=== PATIENT | female | born 1960 | race Caucasian/White ===

== ENCOUNTER 2017-10-13 15:54 | Emergency (ER) | payer OTHER ==
[~2017-10-13] VITALS: Ht 156.2 cm; Wt 54.9 kg
--- OUTSIDE RECORDS SUMMARY | 2017-10-13 16:02 | XMS REPORT ---
Author Ely Wakefield Organization [facility] Address [address] [place], [place] [id number] Care Team Providers Care Head And Neck Surgeon Name Role Phone Ely Braun PCP Unavailable Allergies and Adverse Reactions Name Reaction Notes SULFA (SULFONAMIDES) "diarrhea" Plan of Treatment Planned Activity Comments Planned Date Planned Time Plan/Goal DXA BONE DENSITY AXIAL 05/14/2016 12:00 AM Medications Active Name Start Date Estimated Completion Date SIG Comments naproxen 500 mg oral tablet 05/10/2016 Take one tab 1-2 times a day Zoloft 50 mg oral tablet 05/10/2016 11/06/2016 take 1 tablet (50 mg) by oral route once daily for 30 days Name Start Date Expiration Date SIG Comments Zithromax Z-Carlos 250 mg oral tablet 01/06/2016 01/11/2016 Take 2 tablets the first day (500 mg) followed by 1 tablet (250 mg) days 2-5. for 5 days Discontinued Name Start Date Discontinued Date SIG Comments amoxicillin 500 mg oral capsule 11/11/2015 01/06/2016 Take one capsule three times a day for 7 days Sudafed 12 Hour 120 mg oral tablet extended release 11/11/2015 01/06/2016 take 1 tablet (120 mg) by oral route every 12 hours codeine-guaifenesin 10-100 mg/5 mL oral liquid 01/06/2016 05/10/2016 take 10 milliliters by oral route every 4 hours as needed Problem List Description Status Onset Chronic back pain greater than 3 months duration Active Varicose veins of both lower extremities Active Vital Signs Date Time BP-Sys(mm[Hg] BP-Kassie(mm[Hg]) HR(bpm) RR(rpm) Temp WT HT HC BMI BSA BMI Percentile O2 Sat(%) 05/10/2016 4:28:00 PM 126 mmHg 72 mmHg 73 bpm 18 rpm 98.3 F 122 lbs 62 in 22.31 kg/m2 1.56 m2 99 % 01/06/2016 2:36:00 PM 128 mmHg 72 mmHg 91 bpm 20 rpm 99.2 F 123 lbs 97 % 11/11/2015 3:49:00 PM 118 mmHg 64 mmHg 66 bpm 16 rpm 98.9 F 123 lbs 62 in 22.50 kg/m2 1.56 m2 98 % Social History Name Description Comments Alcohol Current some day wine 4x qweek Tobacco Former smoker quit 1992, 16 pack years History of Procedures Date Ordered Description Order Status 01/06/2016 2:49 PM STREP A ASSAY W/OPTIC Reviewed Results Summary Data and Description Results 01/06/2016 2:49 PM STREPTOCOCCUS, GROUP A CULTURE Negative History Of Immunizations Not available. History of Past Illness Name Date of Onset Comments Varicose veins of both lower extremities Chronic back pain greater than 3 months duration Memory difficulty OME (otitis media with effusion) Nov 11 2015 3:53PM Cough Jan 06 2016 2:39PM Upper Respiratory Infections Jan 06 2016 2:39PM Screening for osteoporosis May 10 2016 4:29PM Height loss May 10 2016 4:29PM Chronic back pain May 10 2016 4:29PM Screening for breast cancer May 10 2016 4:29PM Payers Insurance Name Company Name Plan Name Plan Number Policy Number Policy Group Number Start Date ProviDrs Care ProviDrs Care [id number] Saturday, 2013 History of Encounters Visit Date Visit Type Provider 05/10/2016 Office visit Ely Braun APRN 01/06/2016 Office visit Ely Braun APRN 11/11/2015 Office visit Ely Braun APRN
--- OUTSIDE RECORDS SUMMARY | 2017-10-13 16:02 | XMS REPORT ---
Author Author Sydni Ferreira [facility] Address [address] [place], [place] [id number] Care Team Providers Care Fws Faculty Assistant Name Role Phone Sydni Ferreira PCP Unavailable Allergies and Adverse Reactions Name Reaction Notes SULFA (SULFONAMIDES) "diarrhea" Plan of Treatment Planned Activity Comments Planned Date Planned Time Plan/Goal DEXA 05/14/2016 12:00 AM Medications Active Name Start Date Estimated Completion Date SIG Comments naproxen 500 mg oral tablet 06/24/2017 TAKE ONE TABLET BY MOUTH ONE TO TWO TIMES DAILY. Zoloft 50 mg oral tablet 07/30/2017 take 1 tablet (50 mg) by oral route once daily for 90 days Name Start Date Expiration Date SIG Comments Zithromax Z-Carlos 250 mg oral tablet 01/06/2016 01/11/2016 Take 2 tablets the first day (500 mg) followed by 1 tablet (250 mg) days 2-5. for 5 days naproxen 500 mg oral tablet 11/17/2016 05/16/2017 Take one tab 1-2 times a day Discontinued Name Start Date Discontinued Date SIG [...] oral route every 4 hours as needed mupirocin 2 % topical ointment 07/05/2016 06/20/2017 apply a small amount to the affected area by topical route 3 times per day Macrobid 100 mg oral capsule 08/25/2017 09/14/2017 take 1 capsule (100 mg) by oral route every 12 hours with food for 7 days Problem List Description Status Onset Chronic back pain greater than 3 months duration Active Varicose veins of both lower extremities Active Depression Active 12/06/2016 Vital Signs Date Time BP-Sys(mm[Hg] BP-Kassie(mm[Hg]) HR(bpm) RR(rpm) Temp WT HT HC BMI BSA BMI Percentile O2 Sat(%) 09/14/2017 9:51:00 AM 140 mmHg 96 mmHg 67 bpm 20 rpm 97.9 F 120.25 lbs 62 in 21.99 kg/m2 1.54 m2 99 % 08/25/2017 10:15:00 AM 138 mmHg 80 mmHg 69 bpm 18 rpm 97.8 F 119.5 lbs 62 in 21.8566 kg/m 1.5399 m 97 % 06/20/2017 4:17:00 PM 118 mmHg 80 mmHg 70 bpm 20 rpm 98 F 117.125 lbs 62 in 21.42 kg/m2 1.52 m2 99 % 11/17/2016 11:22:00 AM 118 mmHg 80 mmHg 66 bpm 18 rpm 98.2 F 119 lbs 100 % 07/05/2016 4:38:00 PM 118 mmHg 74 mmHg 66 bpm 18 rpm 96.7 F 122 lbs 62 in 22.31 kg/m2 1.56 m2 99 % 05/10/2016 4:28:00 PM 126 mmHg 72 mmHg 73 bpm 18 rpm 98.3 F 122 lbs 62 in 22.3139 kg/m 1.5559 m 99 % 01/06/2016 2:36:00 PM 128 mmHg 72 mmHg 91 bpm 20 rpm 99.2 F 123 lbs 97 % 11/11/2015 3:49:00 PM 118 mmHg 64 mmHg 66 bpm 16 rpm 98.9 F 123 lbs 62 in 22.4968 kg/m 1.5622 m 98 % Social History Name Description Comments Alcohol Current some day wine 4x qweek Tobacco Former smoker quit 1992, 16 pack years History of Procedures Date Ordered Description Order Status 01/06/2016 2:49 PM STREP A ASSAY W/OPTIC Reviewed 05/14/2016 12:00 AM MAMMOGRAPHY SCREENING, DIGITAL Reviewed 11/17/2016 12:00 AM X-RAY EXAM OF FINGER(S) Returned 06/20/2017 12:00 AM MAMMOGRAPHY SCREENING, DIGITAL Returned 08/25/2017 11:23 AM URINALYSIS AUTO W/O SCOPE Reviewed 08/25/2017 12:00 AM URINE BACTERIA CULTURE Reviewed Results Summary Date and Description Results 01/06/2016 2:49 PM STREPTOCOCCUS, GROUP A CULTURE Negative 08/25/2017 11:23 AM Clarity Ur cloudy Urine-Color light yellow Glucose Ur- sCnc negative Bilirub Ur Ql negative Ketones Ur Ql Strip negative Sp Gr Ur Qn 1.015 Hgb Ur Ql Strip moderate pH Ur-LsCnc 7.0 Prot Ur Ql Strip negative Urobilinogen Ur-mCnc 0.2 Nitrite Ur Ql Strip negative WBC # Ur small History Of Immunizations Not available. History of Past Illness Name Date of Onset Comments Varicose veins of both lower extremities Chronic back pain greater than 3 months duration Memory difficulty Depression 12/06/2016 OME (otitis media with effusion) Nov 11 2015 3:53PM Cough Jan 06 2016 2:39PM Upper Respiratory Infections Jan 06 2016 2:39PM Screening for osteoporosis May 10 2016 4:29PM Height loss May 10 2016 4:29PM Chronic back pain May 10 2016 4:29PM Screening for breast cancer May 10 2016 4:29PM Screening for osteoporosis Jul 05 2016 4:41PM Height loss Jul 05 2016 4:41PM Chronic back pain Jul 05 2016 4:41PM Screening for breast cancer Jul 05 2016 4:41PM Skin complaints Jul 05 2016 4:41PM Finger pain, left Nov 17 2016 11:25AM Dorsalgia, unspecified Nov 17 2016 11:25AM Other chronic pain Nov 17 2016 11:25AM Depression Nov 17 2016 11:25AM Screening for breast cancer Jun 20 2017 4:19PM Routine gynecological examination Jun 20 2017 4:19PM Infective urethritis Aug 25 2017 10:20AM Jaw swelling Sep 14 2017 9:52AM Payers Insurance Name Company Name Plan Name Plan Number Policy Number Policy Group Number Start Date Employee Benefit Management Employee Benefit Management [id number] N /A ProviDrs Care ProviD[employer] Care [id number] Saturday, 2013 History of Encounters Visit Date Visit Type Provider 09/14/2017 Office visit Sydni Ferreira MD 08/25/2017 Office visit Joy Marie PONY RIDE ATTENDANT 06/20/2017 Office visit Ely Braun PONY RIDE ATTENDANT 11/17/2016 Office visit Ely Braun PONY RIDE ATTENDANT 07/05/2016 Office visit Ely Braun PONY RIDE ATTENDANT 05/10/2016 Office visit Ely Braun PONY RIDE ATTENDANT 01/06/2016 Office visit Ely Braun PONY RIDE ATTENDANT 11/11/2015 Office visit Ely Braun PONY RIDE ATTENDANT
--- OUTSIDE RECORDS SUMMARY | 2017-10-13 16:02 | XMS REPORT ---
Author Author Joy Marie Organization [facility] Address [address] [place], [place] [address] Care Team Providers Care Blender Conveyor Operator Name Role Phone Joy Marie PCP Unavailable Allergies and Adverse Reactions Name Reaction Notes SULFA (SULFONAMIDES) "diarrhea" Plan of Treatment Planned Activity Comments Planned Date Planned Time Plan/Goal DEXA 05/14/2016 12:00 AM Urine culture and sensitivity 08/25/2017 12:00 AM Medications Active Name Start Date Estimated Completion Date SIG Comments naproxen 500 mg oral tablet 06/24/2017 TAKE ONE TABLET BY MOUTH ONE TO TWO TIMES DAILY. Zoloft 50 mg oral tablet 07/30/2017 take 1 tablet (50 mg) by oral route once daily for 90 days Macrobid 100 mg oral capsule 08/25/2017 take 1 capsule (100 mg) by oral route every 12 hours with food for 7 days Name Start Date Expiration Date SIG [...] by topical route 3 times per day Problem List Description Status Onset Chronic back pain greater than 3 months duration Active Varicose veins of both lower extremities Active Depression Active 12/06/2016 Vital Signs Date Time BP-Sys(mm[Hg] BP-Kassie(mm[Hg]) HR(bpm) RR(rpm) Temp WT HT HC BMI BSA BMI Percentile O2 Sat(%) 08/25/2017 10:15:00 AM 138 mmHg 80 mmHg 69 bpm 18 rpm 97.8 F 119.5 lbs 62 in 21.86 kg/m2 1.54 m2 97 % 06/20/2017 4:17:00 PM 118 mmHg 80 mmHg 70 bpm 20 rpm 98 F 117.125 lbs 62 in 21.4222 kg/m 1.5245 m 99 % 11/17/2016 11:22:00 AM 118 mmHg 80 mmHg 66 bpm 18 rpm 98.2 F 119 lbs 100 % 07/05/2016 4:38:00 PM 118 mmHg 74 mmHg 66 bpm 18 rpm 96.7 F 122 lbs 62 in 22.3139 kg/m 1.5559 m 99 % 05/10/2016 4:28:00 PM 126 mmHg [...] 11:23 AM URINALYSIS AUTO W/O SCOPE Reviewed Results Summary Date and Description Results [...] 4:19PM Infective urethritis Aug 25 2017 10:20AM Payers Insurance Name Company Name Plan Name Plan Number Policy Number Policy Group Number Start Date Employee Benefit Management Employee Benefit Management [id number] N /A ProviDrs Care Provi[employer] Care [id number] Saturday, 2013 History of Encounters Visit Date Visit Type Provider 08/25/2017 Office visit Joy Marie APRN 06/20/2017 Office visit Ely Braun MAIL SORTING SUPERVISOR 11/17/2016 Office visit Ely Braun APRN 07/05/2016 Office visit Ely Braun APRN 05/10/2016 Office visit Ely Braun APRN 01/06/2016 Office visit Ely Braun APRN 11/11/2015 Office visit Ely Braun APRN
--- OUTSIDE RECORDS SUMMARY | 2017-10-13 16:02 | XMS REPORT ---
Author Author Ely Braun [facility] Address [address] [place], [place] [id number] Care Team Providers Care Survey Worker Name Role Phone Ely Braun PCP Unavailable Allergies and Adverse Reactions Name Reaction Notes SULFA (SULFONAMIDES) "diarrhea" Plan of Treatment Not available. Medications Active Name Start Date Estimated Completion Date SIG Comments Zoloft 50 mg oral tablet take 1 tablet (50 mg) by oral route once daily naproxen 500 mg oral tablet 1 tab QD amoxicillin 500 mg oral capsule 11/11/2015 Take one capsule three times a day for 7 days Sudafed 12 Hour 120 mg oral tablet extended release 11/11/2015 take 1 tablet (120 mg) by oral route every 12 hours Problem List Description Status Onset Chronic back pain greater than 3 months duration Active Varicose veins of both lower extremities Active Vital Signs Date Time BP-Sys(mm[Hg] BP-Kassie(mm[Hg]) HR(bpm) RR(rpm) Temp WT HT HC BMI BSA BMI Percentile O2 Sat(%) 11/11/2015 3:49:00 PM 118 mmHg 64 mmHg 66 bpm 16 rpm 98.9 F 123 lbs 62 in 22.50 kg/m2 1.56 m2 98 % Social History Name Description Comments Alcohol Current some day wine 4x qweek Tobacco Former smoker quit 1991, 16 pack years History of Procedures Not available. Results Summary Not available. History Of Immunizations Not available. History of Past Illness Name Date of Onset Comments Varicose veins of both lower extremities Chronic back pain greater than 3 months duration Memory difficulty OME (otitis media with effusion) Nov 11 2015 3:53PM Payers Insurance Name Company Name Plan Name Plan Number Policy Number Policy Group Number Start Date ProviDrs Care ProviDrs Care [id number] Saturday, 2013 History of Encounters Visit Date Visit Type Provider 11/11/2015 Office visit Ely Braun ASSISTANT WOMENS VOLLEYBALL COACH
--- OUTSIDE RECORDS SUMMARY | 2017-10-13 16:02 | XMS REPORT | CCD ---
Author Author MAGY DORSEY Unknown Address [address] [place], [place] [address] Care Team Providers Care Custom Miller Name Role Phone SHADY RAMIRES, CELSO Wynne Attphys Vital Signs Vital Sign Value Unit Date/Time Recent/Initial? Weight Measured 120 lbs 06/02/2015 09:25 Initial VS Height 63 in 06/02/2015 09:25 Initial VS BMI (Body Mass Index) 21.26 kg/m^2 06/02/2015 09:25 Initial VS BSA (Body Surface Area) 1.56 m^2 06/02/2015 09:25 Initial VS Allergies Allergy Code Allergy Type Reaction Status SULFA (sulfonamide) 0 Drug allergy Active Procedures Procedure Code Procedure Type Date CARPAL TUNNEL RELEASE 0443 ICD-9 CM, Volume 3 06/03/2015 History of Immunizations Immunization Code Date Influenza, seasonal, injectable 141 08/12/2013 influenza, injectable, quadrivalent 158 09/01/2014 Problems Unknown or Not Available. Results Unknown or Not Available. Active Medications No Active Medications Medications Administered During Visit Unknown or Not Available. Encounters Encounter Diagnosis Diagnosis Code Start Date CARPAL TUNNEL SYNDROME 3540 06/03/2015 Social History Smoking Status Code Start Date End Date Never smoker [id number] Patient Decision Aids Patient Decision Aid HAND SURGERY; AFTER THE PROCEDURE Discharge Instructions You were admitted to [facility] on 06/03/2015 with a principal diagnosis of CARPAL TUNNEL SYNDROME. You had the following procedures done: CARPAL TUNNEL SURGERY You were discharged from [facility] on 06/03/2015. Should you have any questions prior to discharge, please contact a member of your healthcare team. If you have left the hospital and have any questions, please contact your primary care physician. Chief Complaint and Reason For Visit Chief Complaint Date of Onset CARPAL TUNNEL Function Status Unknown or Not Available. Plan of Care Unknown or Not Available. Referral/Transition of Care Unknown or Not Available.
--- OUTSIDE RECORDS SUMMARY | 2017-10-13 16:02 | XMS REPORT ---
Author Ely Wakefield Organization [facility] Address [address] [place], [place] [id number] Care Team Providers Care Under Trimmer Name Role Phone Ely Braun PCP Unavailable [...] Date Employee Benefit Management Employee Benefit Management [id number] N /A ProviDrs Care ProviDrs Care [id number] Saturday, 2013 History of Encounters Visit Date Visit Type Provider 05/10/2016 Office visit Ely Braun APRN 01/06/2016 Office visit Ely Braun APRN 11/11/2015 Office visit Ely Braun APRN
--- OUTSIDE RECORDS SUMMARY | 2017-10-13 16:03 | XMS REPORT ---
Author Ely Wakefield Organization [facility] Address [address] [place], [place] [address] Care Team Providers Care Felling Bucking Supervisor Name Role Phone Ely Braun PCP Unavailable Allergies and Adverse Reactions Name Reaction Notes SULFA (SULFONAMIDES) "diarrhea" Plan of Treatment Planned Activity Comments Planned Date Planned Time Plan/Goal DEXA 05/14/2016 12:00 AM Medications Active Name Start Date Estimated Completion Date SIG Comments mupirocin 2 % topical ointment 07/05/2016 apply a small amount to the affected area by topical route 3 times per day naproxen 500 mg oral tablet 11/17/2016 05/16/2017 Take one tab 1-2 times a day Zoloft 50 mg oral tablet 11/17/2016 08/14/2017 take 1 tablet (50 mg) by oral [...] HC BMI BSA BMI Percentile O2 Sat(%) 11/17/2016 11:22:00 AM 118 mmHg 80 mmHg [...] 1991, 16 pack years History of Procedures Date Ordered Description Order Status 01/06/2016 2:49 PM STREP A ASSAY W/OPTIC Reviewed 05/14/2016 12:00 AM MAMMOGRAPHY SCREENING, DIGITAL Reviewed 11/17/2016 12:00 AM X-RAY EXAM OF FINGER(S) Returned Results Summary Data and Description Results 01/06/2016 [...] 2016 11:25AM Depression Nov 17 2016 11:25AM Payers Insurance Name Company Name Plan Name Plan Number Policy Number Policy Group Number Start Date Employee Benefit Management Employee Benefit Management [id number] N /A ProviDrs Care ProviDrs Care [id number] Saturday, 2013 History of Encounters Visit Date Visit Type Provider 11/17/2016 Office visit Ely Braun MORTAR MAKER 07/05/2016 Office visit Ely Braun MORTAR MAKER 05/10/2016 Office visit Ely Braun APRN 01/06/2016 Office visit Ely Braun MORTAR MAKER 11/11/2015 Office visit Ely Braun MORTAR MAKER
--- OUTSIDE RECORDS SUMMARY | 2017-10-13 16:03 | XMS REPORT ---
Author Ely Wakefield Organization [facility] Address [address] [place], [place] [address] Care Team Providers Care Twister Tender Paper Name Role Phone Ely Braun PCP Unavailable Allergies and Adverse Reactions Name Reaction Notes SULFA (SULFONAMIDES) "diarrhea" Plan of Treatment Not available. Medications Active Name Start Date Estimated Completion Date SIG Comments Zoloft 50 mg oral tablet take 1 tablet (50 mg) by oral route once daily naproxen 500 mg oral tablet 1 tab QD codeine-guaifenesin 10-100 mg/5 mL oral liquid 01/06/2016 take 10 milliliters by oral route every 4 hours as needed Name Start Date Expiration Date SIG Comments [...] HC BMI BSA BMI Percentile O2 Sat(%) 01/06/2016 2:36:00 PM 128 mmHg 72 mmHg [...] Upper Respiratory Infections Jan 06 2016 2:39PM Payers Insurance Name Company Name Plan Name Plan Number Policy Number Policy Group Number Start Date ProviDrs Care ProviDrs Care [id number] Saturday, 2013 History of Encounters Visit Date Visit Type Provider 01/06/2016 Office visit Ely Braun APRN 11/11/2015 Office visit Ely Braun CORPORATE TRAVEL COORDINATOR
--- OUTSIDE RECORDS SUMMARY | 2017-10-13 16:03 | XMS REPORT ---
Author Author Flo Bansal Organization [employer] Address Unknown Phone Unavailable Care Team Providers Care Dumper Mold Cleaner Name Role Phone Flo Bansal CP Unavailable Allergies, Adverse Reactions, Alerts Substance Reaction Event Type N.K.D.A. Info Not Available Non Drug Allergy Problems Problem Type Condition Code Onset Dates Condition Status Problem Carpal tunnel syndrome 354.0 Active Assessment Carpal tunnel syndrome 354.0 Active Problem Attention or concentration deficit 799.51 Active Medications Medication Code System Code Instructions Start Date End Date Status Dosage Naproxen [facility] [address]-32 500 MG Orally every 12 hrs 1 tablet as needed Zoloft [facility] [address]-60 50 MG Orally Once a day 1 tablet Gabapentin [facility] [address]-13 300 MG Orally Three times a day 1 capsule [place] [facility] [address]-75 5-325 MG Orally As needed 1 tablet every 4 hours or at bedtime Procedures Procedure Coding System Code Date SOME PRESCRIB HANDWRITTEN OR CPT-4 G8446 February 03, 2015 PRESCRIPTION BY E-PRESCRIB S CPT-4 G8443 February 03, 2015 TOBACCO NON-USER CPT-4 G8457 February 03, 2015 CLIN DEPRESSION SCREEN DOC CPT-4 G8431 February 03, 2015 DOC MEDS VERIFIED W/PT OR RE CPT-4 G8427 February 03, 2015 PAIN ASSESSMENT DOCUMENT CPT-4 G8440 February 03, 2015 TX PLAN DEVELOP & DOCUMENT CPT-4 G8437 February 03, 2015 BP SYS <130 AND PEREZ <80 CPT-4 G8476 February 03, 2015 PAIN SEV QUANTIFIED PAIN PRES CPT-4 G8512 February 03, 2015 BMI>=30OR<22 JINA NO FOLLOWUP CPT-4 G8419 February 03, 2015 AT LEAST 1 RX TRANSMIT ERX SYS CPT-4 G8553 February 03, 2015 MOST RECENT SYSTOLIC BP <140 MM HG CPT-4 G8588 February 03, 2015 FLU VACCINE NOT SCREEN CPT-4 G8424 February 03, 2015 MOST RECENT DIASTOLIC BP <90 MM HG CPT-4 G8590 February 03, 2015 Office Visit, New Pt., Level 2 CPT-4 08753 February 03, 2015 Vital Signs Date/Time: February 03, 2015 BMI 21.43 Index Pain Scale 5/10 1-10 Weight 121.0 lbs Height 63 in Respiratory Rate 24 /min Temperature 97.7 F Cardiac Monitoring Heart Rate 80 /min Oximetry 98 % Blood Pressure Diastolic 74 mm Hg Blood Pressure Systolic 118 mm Hg Results No Known Results Summary Purpose [employer] Submission
--- OUTSIDE RECORDS SUMMARY | 2017-10-13 16:03 | XMS REPORT | Continuity of Care Document ---
Author Author [facility] Organization [facility] Address Unknown Phone Unavailable Allergies Medications Problems Procedures Results Encounters ACCT No. Visit Date/Time Discharge Status Pt. Type Provider Facility Loc./Unit Complaint [id number] 09/14/2017 10:43:29 09/14/2017 23: 59:59 [facility] Outpatient Sydni Ferreira [id number] 08/25/2017 11:06:55 08/25/2017 23: 59:59 [facility] Outpatient Joy Marie [id number] 06/20/2017 17:12:47 06/20/2017 23: 59:59 [facility] Outpatient Ely Braun [id number] 11/17/2016 12:12:33 11/17/2016 23: 59:59 [facility] Outpatient Ely Braun [id number] 07/05/2016 17:34:52 07/05/2016 23: 59:59 [facility] Outpatient Ely Braun [id number] 05/10/2016 17:21:46 05/10/2016 23: 59:59 [facility] Outpatient Ely Braun [id number] 01/06/2016 15:27:17 01/06/2016 23: 59:59 [facility] Outpatient Ely Braun [id number] 11/11/2015 16:36:53 11/11/2015 23: 59:59 [facility] Outpatient Ely Braun
--- OUTSIDE RECORDS SUMMARY | 2017-10-13 16:03 | XMS REPORT ---
Author Ely Wakefield Organization [facility] Address [address] [place], [place] [address] Care Team Providers Care Lead Database Administrator Name Role Phone Ely Braun PCP Unavailable Allergies and Adverse Reactions Name Reaction Notes SULFA (SULFONAMIDES) "diarrhea" Plan of Treatment Planned Activity Comments Planned Date Planned Time Plan/Goal DEXA 05/14/2016 12:00 AM Medications Active Name Start Date Estimated Completion Date SIG Comments Zoloft 50 mg oral tablet 11/17/2016 08/14/2017 [...] HC BMI BSA BMI Percentile O2 Sat(%) 06/20/2017 4:17:00 PM 118 mmHg 80 mmHg [...] X-RAY EXAM OF FINGER(S) Returned Results Summary Date and Description Results 01/06/2016 [...] Routine gynecological examination Jun 20 2017 4:19PM Payers Insurance Name Company Name Plan Name Plan Number Policy Number Policy Group Number Start Date Employee Benefit Management Employee Benefit Management [id number] N /A ProviDrs Care ProviDrs Care [id number] Saturday, 2013 History of Encounters Visit Date Visit Type Provider 06/20/2017 Office visit Ely Braun SIGNAL MAINTAINER HELPER 11/17/2016 Office visit Ely Braun SIGNAL MAINTAINER HELPER 07/05/2016 Office visit Ely Braun SIGNAL MAINTAINER HELPER 05/10/2016 Office visit Ely Braun SIGNAL MAINTAINER HELPER 01/06/2016 Office visit Ely Braun SIGNAL MAINTAINER HELPER 11/11/2015 Office visit Ely Braun SIGNAL MAINTAINER HELPER
--- OUTSIDE RECORDS SUMMARY | 2017-10-13 16:03 | XMS REPORT ---
Author Ely Wakefield Organization [facility] Address [address] [place], [place] [address] Care Team Providers Care Frame Opener Name Role Phone Ely Braun PCP Unavailable [...] oral route once daily for 30 days mupirocin 2 % topical ointment 07/05/2016 apply a small amount to the affected area by topical route 3 times per day Name Start Date Expiration Date SIG Comments [...] HC BMI BSA BMI Percentile O2 Sat(%) 07/05/2016 4:38:00 PM 118 mmHg 74 mmHg [...] 4:41PM Skin complaints Jul 05 2016 4:41PM Payers Insurance Name Company Name Plan Name Plan Number Policy Number Policy Group Number Start Date Employee Benefit Management Employee Benefit Management [id number] N /A ProviDrs Care Provi[employer]rs Care [id number] Saturday, 2013 History of Encounters Visit Date Visit Type Provider 07/05/2016 Office visit Ely Braun APRN 05/10/2016 Office visit Ely Braun MARINA DRY DOCK MANAGER 01/06/2016 Office visit Ely Braun MARINA DRY DOCK MANAGER 11/11/2015 Office visit Ely Braun MARINA DRY DOCK MANAGER
[2017-10-13] MEDS ORDERED: SERT50TA2 PO (16:19)
[2017-10-13] MEDS ORDERED: NAPR250T6 PO (16:19)
[2017-10-13] MEDS ORDERED: ASPI-999 PO (16:19)
[2017-10-13 16:31] LABS: BASOPHILS % (AUTO) 0 % (0-10); EOSINOPHILS # (AUTO) 0.1 10^3/uL (0.0-0.3); EOSINOPHILS % (AUTO) 1 % (0-10); LYMPHOCYTES # (AUTO) 1.8 X 10^3 (1.0-4.0); LYMPHOCYTES % (AUTO) 21 % (12-44); MEAN CORPUSCULAR HEMOGLOBIN 32 PG (25-34); MEAN CORPUSCULAR HGB CONC 35 G/DL (32-36); MEAN CORPUSCULAR VOLUME 90 FL (80-99); MEAN PLATELET VOLUME 10.7 FL (7.4-10.4); MONOCYTES # (AUTO) 0.5 X 10^3 (0.0-1.0); MONOCYTES % (AUTO) 6 % (0-12); NEUTROPHILS # (AUTO) 6.2 X 10^3 (1.8-7.8); NEUTROPHILS % (AUTO) 72 % (42-75); PLATELET COUNT 321 10^3/uL (130-400); RED BLOOD COUNT 4.38 10^6/uL (4.35-5.85); RED CELL DISTRIBUTION WIDTH 11.9 % (10.0-14.5); WHITE BLOOD COUNT 8.6 10^3/uL (4.3-11.0)
[2017-10-13 16:31] LABS: BILIRUBIN,URINE NEGATIVE (NEGATIVE); KETONES,URINE NEGATIVE (NEGATIVE); LEUKOCYTE ESTERASE ,URINE NEGATIVE (NEGATIVE); NITRITE,URINE NEGATIVE (NEGATIVE); PH,URINE 6.5 (5-9); PROTEIN,URINE NEGATIVE (NEGATIVE); UROBILINOGEN,URINE NORMAL (NORMAL)
[2017-10-13 16:37] LABS: SQUAMOUS EPITHELIAL CELL,UR 0-2 /HPF
[2017-10-13 16:53] LABS: ALANINE AMINOTRANSFERASE 17 U/L (0-55); ALBUMIN 4.2 GM/DL (3.2-4.5); ALCOHOL < 10 MG/DL (<10); ANION GAP 13 MMOL/L (5-14); ASPARTATE AMINO TRANSFERASE 27 U/L (5-34); BILIRUBIN,TOTAL 0.4 MG/DL (0.1-1.0); BLOOD UREA NITROGEN 14 MG/DL (7-18); BUN/CREATININE RATIO 19; CALCIUM 9.6 MG/DL (8.5-10.1); CARBON DIOXIDE 20 MMOL/L (21-32); CHLORIDE 100 MMOL/L (98-107); CREATININE SERUM 0.73 MG/DL (0.60-1.30); GFR ESTIMATED > 60; GLUCOSE 104 MG/DL (70-105); MAGNESIUM 1.8 MG/DL (1.8-2.4); SODIUM 133 MMOL/L (135-145); TOTAL PROTEIN 7.2 GM/DL (6.4-8.2)
--- NOTE | 2017-10-13 16:53 | Diagnostic Imaging Report ---
PROCEDURE: CT head without contrast. TECHNIQUE: Multiple contiguous axial images were obtained through the brain without the use of intravenous contrast. DATE: 10/13/2017. COMPARISON: None. INDICATION: 57-year-old female, sudden onset memory loss. FINDINGS: The ventricles and cerebral spinal fluid spaces are of normal size and configuration for the patient's age. There is no mass effect or midline shift. There is no acute intracranial hemorrhage. There is no abnormal extra-axial fluid collection. The visualized portions of the paranasal sinuses, mastoid air cells and middle ears are well aerated. IMPRESSION: No identified acute intracranial abnormality. Dictated by: Dictated on workstation # [id number]
--- NOTE | 2017-10-13 17:50 | ED Neurological Problem ---
General Chief Complaint: Altered Mental Status Stated Complaint: ONSENT OF MENTAL CONFUSION IN THE MORNING Nursing Triage Note: AMBULATORY TO ER WITH REPORTS OF SOME CONFUSION AND SPEECH DIFFICULTY SINCE AWAKENING AT 0930 THIS MORNING. PATIENT REPORTS THAT SHE WENT TO A [employer] LAST NIGHT AND HAD A FEW DRINKS. PATIENT REPORTS THAT "I DID NOT GET DRUNK." PATIENT REPORTS THAT SHE HAS HAD PROBLEMS WITH MEMORY BEFORE, BUT THIS IS DIFFERENT. PATIENT HAS VERY DISCONNECTED THOUGHTS. Nursing Sepsis Screen: No Definite Risk Source: patient, family Exam Limitations: no limitations History of Present Illness Time seen by provider: 16:00 Initial Comments This 57-year-old woman presents to the emergency room with complaints of confusion and distracted thinking. She feels like she's having short-term memory problems. Her reports the same. She woke at 09:30 with these symptoms. She was at a [employer] last night where she did consume alcohol. She denies intoxication. She has not had any alcohol today. She also takes Benadryl at night to sleep. She reports sleeping very well last night. She feels tired but otherwise has no physical complaints. She reports drinking 3-4 times per week, usually one glass of wine. She denies any significant health problems but does take Zoloft for anxiety/depression. She is concerned she may have had a "mini stroke". Allergies and Home Medications Allergies Coded Allergies: Sulfa (Sulfonamide Antibiotics) (Verified Allergy, Severe, 10/13/17) Home Medications Aspirin 81 Mg Tab.chew, 81 MG PO DAILY, (Reported) Naproxen 250 Mg Tablet, 250 MG PO HS, (Reported) Sertraline HCl 50 Mg Tablet, 50 MG PO DAILY, (Reported) Constitutional: see HPI Eyes: No Symptoms Reported Ears, Nose, Mouth, Throat: no symptoms reported Respiratory: no symptoms reported Cardiovascular: no symptoms reported Gastrointestinal: no symptoms reported Genitourinary: no symptoms reported : No Musculoskeletal: no symptoms reported Skin: no symptoms reported Psychiatric/Neurological: See HPI Endocrine: No Symptoms Reported Past Gxqinhu-Ttgfwo-Pbseno Hx Patient Social History Alcohol Use: Regular Use Alcohol Beverage of Choice: Wine Recreational Drug Use: No Smoking Status: Former Smoker Type Used: Cigarettes 2nd Hand Smoke Exposure: No Recent Foreign Travel: No Contact w/Someone Who Travel: No Recent Infectious Disease Expo: No Recent Hopitalizations: No Physical Abuse: No Sexual Abuse: No Mistreated: No Fear: No Seasonal Allergies Seasonal Allergies: Yes Surgeries History of Surgeries: Yes (CERVICAL SURGERY, cone procedure for dysplasia) Respiratory History of Respiratory Disorde: No Cardiovascular History of Cardiac Disorders: No Neurological History of Neurological Disord: No Reproductive System : No [employer] History: Menopausal Genitourinary History of Genitourinary Disor: No Gastrointestinal History of Gastrointestinal Di: No Musculoskeletal History of Musculoskeletal Dis: No Endocrine History of Endocrine Disorders: No HEENT History of HEENT Disorders: No Cancer History of Cancer: Yes Cancer: Cervical Did You Recieve Any Treatments: Yes Type of Tx Receive: Surgical Intervention Psychosocial History of Psychiatric Problem: Yes Behavioral Health Disorders: Anxiety, Depression Suicide Risk Score: 0 Integumentary History of Skin or Integumenta: No Blood Transfusions History of Blood Disorders: No Physical Exam Vital Signs Vital Sign - Last 12Hours 10/13/17 16:00 Temp 98.2 Pulse 88 Resp 18 B/P (MAP) 169/103 (125) Pulse Ox 96 O2 Delivery Room Air Capillary Refill : Less Than 3 Seconds General Appearance: WD/WN, mild distress, other (appears hyper) HEENT: PERRL/EOMI, normal ENT inspection, TMs normal, pharynx normal Neck: normal inspection Respiratory: lungs clear, normal breath sounds, no respiratory distress, no accessory muscle use Cardiovascular: regular rate, rhythm, no edema, no murmur Gastrointestinal: normal bowel sounds, non tender, soft Extremities: normal inspection, no pedal edema Neurologic/Psychiatric: 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 Sometimes loses train of thought or has subtle difficulty with word finding) Crainal Nerves: normal hearing, normal speech, PERRL Coordination/Gait: normal finger to nose, normal gait Motor/Sensory: no motor deficit, no sensory deficit Skin: normal color, warm/dry Progress/Results/Core Measures Results/Orders Lab Results Laboratory Tests Test 10/13/17 16:17 10/13/17 16:23 Range/Units Urine Color YELLOW Urine Clarity CLEAR Urine pH 6.5 5-9 Urine Specific [place] 1.010 L 1.016-1.022 Urine Protein NEGATIVE NEGATIVE Urine Glucose (UA) NEGATIVE NEGATIVE Urine Ketones NEGATIVE NEGATIVE Urine Nitrite NEGATIVE NEGATIVE Urine Bilirubin NEGATIVE NEGATIVE Urine Urobilinogen NORMAL NORMAL MG/DL Urine Leukocyte Esterase NEGATIVE NEGATIVE Urine RBC (Auto) NEGATIVE NEGATIVE Urine RBC NONE /HPF Urine WBC NONE /HPF Urine Squamous Epithelial Cells 0-2 /HPF Urine Crystals NONE /LPF Urine Bacteria NEGATIVE /HPF Urine Casts NONE /LPF Urine Mucus NEGATIVE /LPF Urine Culture Indicated NO Urine Opiates Screen NEGATIVE NEGATIVE Urine Oxycodone Screen NEGATIVE NEGATIVE Urine Methadone Screen NEGATIVE NEGATIVE Urine Propoxyphene Screen NEGATIVE NEGATIVE Urine Barbiturates Screen NEGATIVE NEGATIVE Ur Tricyclic Antidepressants Screen NEGATIVE NEGATIVE Urine Phencyclidine Screen NEGATIVE NEGATIVE Urine Amphetamines Screen NEGATIVE NEGATIVE Urine Methamphetamines Screen NEGATIVE NEGATIVE Urine Benzodiazepines Screen NEGATIVE NEGATIVE Urine Cocaine Screen NEGATIVE NEGATIVE Urine Cannabinoids Screen NEGATIVE NEGATIVE White Blood Count 8.6 4.3-11.0 10^3/uL Red Blood Count 4.38 4.35-5.85 10^6/uL Hemoglobin 13.8 11.5-16.0 G/DL Hematocrit 39 35-52 % Mean Corpuscular Volume 90 80-99 FL Mean Corpuscular Hemoglobin 32 25-34 PG Mean Corpuscular Hemoglobin Concent 35 32-36 G/DL Red Cell Distribution Width 11.9 10.0-14.5 % Platelet Count 321 130-400 10^3/uL Mean Platelet Volume 10.7 H 7.4-10.4 FL Neutrophils (%) (Auto) 72 42-75 % Lymphocytes (%) (Auto) 21 12-44 % Monocytes (%) (Auto) 6 0-12 % Eosinophils (%) (Auto) 1 0-10 % Basophils (%) (Auto) 0 0-10 % Neutrophils # (Auto) 6.2 1.8-7.8 X 10^3 Lymphocytes # (Auto) 1.8 1.0-4.0 X 10^3 Monocytes # (Auto) 0.5 0.0-1.0 X 10^3 Eosinophils # (Auto) 0.1 0.0-0.3 10^3/uL Basophils # (Auto) 0.0 0.0-0.1 10^3/uL Sodium Level 133 L 135-145 MMOL/L Potassium Level 4.0 3.6-5.0 MMOL/L Chloride Level 100 98-107 MMOL/L Carbon Dioxide Level 20 L 21-32 MMOL/L Anion Gap 13 5-14 MMOL/L Blood Urea Nitrogen 14 7-18 MG/DL Creatinine 0.73 0.60-1.30 MG/DL Estimat Glomerular Filtration Rate > 60 BUN/Creatinine Ratio 19 Glucose Level 104 70-105 MG/DL Calcium Level 9.6 8.5-10.1 MG/DL Magnesium Level 1.8 1.8-2.4 MG/DL Total Bilirubin 0.4 0.1-1.0 MG/DL Aspartate Amino Transf (AST/SGOT) 27 5-34 U/L Alanine Aminotransferase (ALT/SGPT) 17 0-55 U/L Alkaline Phosphatase 73 40-136 U/L Total Protein 7.2 6.4-8.2 GM/DL Albumin 4.2 3.2-4.5 GM/DL TSH [place] Testing 1.20 0.35-4.94 UIU/ML Serum Alcohol < 10 <10 MG/DL My Orders Orders - NANCY SORENSEN MD Ekg Tracing (10/13/17 15:57) Cbc With Automated Diff (10/13/17 15:59) Comprehensive Metabolic Panel (10/13/17 15:59) Ua Culture If Indicated (10/13/17 15:59) Saline Lock/Iv-Start (10/13/17 15:59) Alcohol (10/13/17 16:22) Drug Screen Stat (Urine) (10/13/17 16:22) Magnesium (10/13/17 16:22) Thyroid Analyzer (10/13/17 16:22) Ct Head Wo (10/13/17 16:22) Vital Signs/I&O Vital Sign - Last 12Hours 10/13/17 10/13/17 16:00 17:52 Temp 98.2 98.2 Pulse 88 86 Resp 18 18 B/P (MAP) 169/103 (125) Pulse Ox 96 98 O2 Delivery Room Air Room Air Blood Pressure Mean: 125 Progress Note : Progress Note Workup was unremarkable. Patient has no measurable neurologic deficits aside from some very minor confusion and word finding difficulty. Patient already takes aspirin daily. She was advised to pursue further workup in the outpatient setting if symptoms persist into Sunday. No other workup or treatment is indicated at this time. ECG Initial ECG Impression Date: Oct 13, 2017 Initial ECG Impression Time: 16:04 Initial ECG Rate: 75 Initial ECG Rhythm: Normal Sinus Initial ECG Intervals: Normal Initial ECG Impression: Normal Comment Normal sinus rhythm with no ST elevation or depression. No abnormal intervals or axis deviation. Diagnostic Imaging Diagonstic Imaging: CT Plain Films/CT/US/NM/MRI: head Comments NAME: WILLIAM GALARZA MED REC#: [id number] PT STATUS: REG ER : 1960 PHYSICIAN: NANCY SORENSEN MD ADMIT DATE: 10/13/17/ER Draft Date of Exam:10/13/17 CT HEAD WO PROCEDURE: CT head without contrast. TECHNIQUE: Multiple contiguous axial images were obtained through the brain without the use of intravenous contrast. DATE: 10/13/2017. COMPARISON: None. INDICATION: 57-year-old female, sudden onset memory loss. FINDINGS: The ventricles and cerebral spinal fluid spaces are of normal size and configuration for the patient's age. There is no mass effect or midline shift. There is no acute intracranial hemorrhage. There is no abnormal extra-axial fluid collection. The visualized portions of the paranasal sinuses, mastoid air cells and middle ears are well aerated. IMPRESSION: No identified acute intracranial abnormality. Dictated on workstation # [id number] Dict: 10/13/17 1645 Trans: 10/13/17 1653 [facility] [id number] Interpreted by: DANITA WILSON MD Departure Impression Impression: Primary Impression: Confusion Disposition: 01 HOME, SELF-CARE Condition: Stable Departure-Patient Inst. Decision time for Depature: 17:49 Referrals: CAROLINE THOMPSON APRN (PCP/Family) Primary Care Physician Patient Instructions: NO INSTRUCTIONS GIVEN Add. Discharge Instructions: Get plenty of rest tonight. Avoid mind altering substances such as alcohol. Return to the emergency room if symptoms worsen. Follow up with your primary care provider on Sunday if symptoms persist. All discharge instructions reviewed with patient and/or family. Voiced understanding. NANCY SORENSEN MD Oct 13, 2017 17:50
[2017-10-13 17:52] VITALS: BP 151/84
== END 2017-10-13 17:52 | disposition home or self-care (01) ==
LOC: ER 15:57
DX: R41.0 Disorientation, unspecified (principal); F41.9 Anxiety disorder, unspecified; F32.9 Major depressive disorder, single episode, unspecified; Z85.41 Personal history of malignant neoplasm of cervix uteri; Z87.891 Personal history of nicotine dependence; Z79.82 Long term (current) use of aspirin; Z98.890 Other specified postprocedural states
CPT/HCPCS: 36415; 70450; 80053; 80306; 80320; 81000; 83735; 84443; 85025